=== PATIENT | female | born 1940 | race Caucasian/White ===

== ENCOUNTER 2017-06-11 14:11 | Emergency (ER) | payer MEDICARE ==
[~2017-06-11] VITALS: Ht 154.9 cm; Wt 87.0 kg
[2017-06-11 14:17] VITALS: BP 181/81; PULSE 85; RESP 18; TEMP 98.1; O2SAT 97
[2017-06-11] MEDS ORDERED: CAPT12.52 PO (15:26)
[2017-06-11] MEDS ORDERED: alleve (15:26)
[2017-06-11] MEDS ORDERED: AMLO2.5T PO (15:26)
[2017-06-11] MEDS ORDERED: METF500T PO (15:26)
[2017-06-11] MEDS ORDERED: VITA1000 PO (15:26)
[2017-06-11] MEDS ORDERED: HYDR25TA5 PO (15:26)
[2017-06-11] MEDS ORDERED: SYNT175T PO (15:26)
[2017-06-11] MEDS ORDERED: UMEC1AER INH (15:26)
[2017-06-11] MEDS ORDERED: VENTAER INH (15:26)
[2017-06-11] MEDS ORDERED: ARMO1TAB2 PO (15:26)
[2017-06-11] MEDS ORDERED: TETANUS/DIPHTHERIA TOXOID ADULT 0.5 ML VIAL IM ONE (15:30)
--- NOTE | 2017-06-11 15:32 | PD ---
HPI Chief Complaint: Fall Time Seen by Provider: 15:19 Travel History International Travel<30 days: No Contact w/Intl Traveler<30days: No Traveled to known affect area: No History of Present Illness HPI 77-year-old female presents via EMS for evaluation after mechanical fall. Prior to arrival the patient tripped and fell at [employer], striking her face against the ground and striking her left hand against the ground. No loss of consciousness. She has minimal pain but she has some soft tissue swelling in the left periorbital region and an abrasion to left hand. Symptoms are mild, aggravated by falling with no alleviating factors. Denies blurred vision, neck or back pain, numbness or tingling or weakness, confusion or amnesia. She is not on any blood thinning medications. Her last tetanus vaccination is unknown. No other complaints at this time. [facility] Social History Alcohol Use: Yes Tobacco Use: No Allergies-Medications (Allergen,Severity, Reaction): Coded Allergies: Iodinated Contrast- Oral and IV Dye (Verified Allergy, Severe, Anaphylaxis , 06/11/17) aspirin (Verified Allergy, Severe, Swelling, 06/11/17) cat dander (Verified Allergy, Severe, Swelling, 06/11/17) shellfish derived (Verified Allergy, Severe, Anaphylaxis, 06/11/17) Uncoded Allergies: GOLD METAL (Allergy, Severe, Rash, 06/11/17) Reported Meds & Prescriptions Reported Meds & Active Scripts Active Reported Ventolin Hfa 18 GM Inh (Albuterol Sulfate) 90 Mcg/Act Aer 1 Puff INH Q4H PRN Anoro Ellipta Inh (Umeclidinium/Vilanterol) 62.5-25 Mcg/Act Aero 1 Puff INH DAILY Vitamin D-1000 (Cholecalciferol) 1,000 Unit Tab Unknown Dose PO DAILY [alleve] DAILY Hydrochlorothiazide 25 Mg Tab 12.5 Mg PO DAILY Amlodipine (Amlodipine Besylate) 2.5 Mg Tab Unknown Dose PO DAILY Armodafinil 50 Mg Tab Unknown Dose PO DAILY Synthroid (Levothyroxine Sodium) 175 Mcg Tab 175 Mcg PO DAILY Captopril 12.5 Mg Tab Unknown Dose PO BID Take 1 hour before meals. Metformin (Metformin HCl) 500 Mg Tab 250 Mg PO BIDPC Review of Systems Except as stated in HPI: all other systems reviewed are Neg Physical Exam Narrative GENERAL: Well-developed well-nourished female in no acute distress SKIN: Warm and dry. Abrasion to the medial left hand. There is ecchymosis and soft tissue swelling to the left periorbital region which is tender to palpation. HEAD: Atraumatic. Normocephalic. EYES: Pupils equal and round reactive to light. The patient has limited lateral deviation of the left eye which she reports is chronic and nonacute. Remainder of extraocular muscle movement is intact. There is no chemosis or pain with extraocular range of motion. There is no proptosis. ENT: No nasal bleeding or discharge. Mucous membranes pink and moist. NECK: Trachea midline. No JVD. CARDIOVASCULAR: Regular rate and rhythm. No murmur appreciated. RESPIRATORY: No accessory muscle use. Clear to auscultation. Breath sounds equal bilaterally. GASTROINTESTINAL: Abdomen soft, non-tender, nondistended. Hepatic and splenic margins not palpable. MUSCULOSKELETAL: No obvious deformities. Minimal tenderness to palpation to medial left hand with associated abrasion. Full range of motion. No tenderness to palpation to the neck or back. NEUROLOGICAL: Awake and alert. No obvious cranial nerve deficits. Motor grossly within normal limits. Normal speech. PSYCHIATRIC: Appropriate mood and affect; insight and judgment normal. Data Data Last Documented VS Vital Signs Date Time Temp Pulse Resp B/P (MAP) Pulse Ox O2 Delivery O2 Flow Rate FiO2 06/11/17 14:17 98.1 85 18 181/81 (114) [address] Brain W/O Iv Contrast(Rout) (06/11/17 ) Ct Facial Bones W/O Iv Cont (06/11/17 ) Hand, Complete ([id number]) (06/11/17 ) Tetanus/Diphtheria Tox Adult (Tetanus/Di (06/11/17 15:30) [facility] Medical Decision Making Medical Screen Exam Complete: Yes Emergency Medical Condition: Yes Medical Record Reviewed: Yes Differential Diagnosis Facial hematoma versus orbital fracture versus retrobulbar hematoma versus intracranial hemorrhage versus contusion Narrative Course CT imaging reveals CONCLUSION: 1. Large cephalhematoma over the left frontal bone extending inferiorly into the pre-septal area. 2. No associated fracture. X-ray imaging left hand reveals no acute abnormalities. The patient is stable for discharge. I discussed with the patient and her friend at bedside signs and symptoms weren't returning to the emergency room. She is stable for discharge. Diagnosis Primary Impression: Facial hematoma Additional Impression: Abrasion of left hand Additional Instructions: Ice the affected area several times a day 20 minutes at a time. Rest. Follow- up with primary care physician next week. Return for any acutely or worsening symptoms such as change in mental status, severe intractable headache, intractable nausea and vomiting. Med/Other Pt SpecificInfo: No Change to Meds Disposition: 01 DISCHARGE HOME Condition: Stable Quinn Goncalves Jun 11, 2017 15:32
--- NOTE | 2017-06-11 16:09 | RADRPT ---
EXAM DATE/TIME: 06/11/2017 15:43 [facility] COMPARISON: No previous studies available for comparison. INDICATIONS : Left hand injury due to a fall. Tripped and fell on tile floor 2 hours ago. MEDICAL HISTORY : None. SURGICAL HISTORY : None. ENCOUNTER: Initial ACUITY: 1 day PAIN SCORE: 0/10 LOCATION: Left upper extremity Below left hand 5th phalange. FINDINGS: Three view examination of the left hand demonstrates no soft tissue swelling, dislocation, or fractur e. The carpal bones appear intact. The interphalangeal and metacarpophalangeal joints are intact. Bony mineralization is normal. Also noted is some early calcification of the triangular fibrocartilage of the wrist. Well-corticated ossification at the base of the first metacarpal is overtly benign but may be degenerative. CONCLUSION: No fracture. Marcos Schroeder MD on June 11, 2017 at 16:04 Board Certified Radiologist. This report was verified electronically.
--- NOTE | 2017-06-11 16:13 | RADRPT ---
EXAM DATE/TIME: 06/11/2017 15:56 [facility] COMPARISON: No previous studies available for comparison. INDICATIONS : Head pain due to fall. RADIATION DOSE: 45.79 CTDIvol (mGy) MEDICAL HISTORY : None SURGICAL HISTORY : None. ENCOUNTER: Initial ACUITY: 1 day PAIN SCALE: 3/10 LOCATION: Left cranial TECHNIQUE: Multiple contiguous axial images were obtained of the head. Using automated exposure control and adj ustment of the mA and/or kV according to patient size, radiation dose was kept as low as reasonably a chievable to obtain optimal diagnostic quality images. DICOM format image data is available electro nically for review and comparison. FINDINGS: CEREBRUM: The ventricles are normal for age. No evidence of midline shift, mass lesion, hemorrhage or acute in farction. No extra-axial fluid collections are seen. POSTERIOR FOSSA: The cerebellum and brainstem are intact. The 4th ventricle is midline. The cerebellopontine angle i s unremarkable. EXTRACRANIAL: The visualized portion of the orbits is intact. SKULL: Large cephalhematoma over the left frontal bone. The calvaria is intact. No evidence of skull fract ure. CONCLUSION: 1. Large cephalhematoma over the left frontal bone. No associated fracture. 2. Otherwise negative. Marcos Schroeder MD on June 11, 2017 at 16:08 Board Certified Radiologist. This report was verified electronically.
--- NOTE | 2017-06-11 16:19 | RADRPT ---
EXAM DATE/TIME: 06/11/2017 15:58 [facility] COMPARISON: No previous studies available for comparison. INDICATIONS : Left upper orbit pain from fall. RADIATION DOSE: 36.57 CTDIvol (mGy) MEDICAL HISTORY : None SURGICAL HISTORY : None. ENCOUNTER: Initial ACUITY: 1 day PAIN SCORE: 4/10 LOCATION: Left orbit region. TECHNIQUE: Volumetric scanning of the facial bones was performed. Using automated exposure control and adjustme nt of the mA and/or kV according to patient size, radiation dose was kept as low as reasonably achiev able to obtain optimal diagnostic quality images. DICOM format image data is available electronicall y for review and comparison. FINDINGS: ORBITS: The orbital and infraorbital osseous structures are intact. The retroconal structures have a normal configuration. No radiopaque foreign bodies are seen. NASAL BONE: The nasal bone and maxillary spine are intact ZYGOMATIC ARCHES: Symmetric without evidence of fracture. SINUSES: The maxillary, ethmoid and frontal sinuses are intact. No air-fluid levels seen. NASAL CAVITY: The nasal septum is intact and midline. The lacrimal ducts are intact. SOFT TISSUES: No radiopaque foreign bodies seen. Large cephalhematoma over the left frontal bone extending int o the preseptal soft tissues. INTRACRANIAL: No intracranial air seen. CRIBIFORM PLATE: Grossly intact. CONCLUSION: 1. Large cephalhematoma over the left frontal bone extending inferiorly into the pre-septal area. 2. No associated fracture. Marcos Schroeder MD on June 11, 2017 at 16:14 Board Certified Radiologist. This report was verified electronically.
[2017-06-14] MEDS ORDERED: NAPR220C22 PO (11:08)
== END 2017-06-11 17:05 | disposition home or self-care (01) ==
LOC: NEPD 14:11
DX: S00.83XA Contusion of other part of head, initial encounter (principal); S60.512A Abrasion of left hand, initial encounter; W01.0XXA Fall on same level from slipping, tripping and stumbling without subsequent striking against object, initial encounter; Y92.512 Supermarket, store or market as the place of occurrence of the external cause; Z79.51 Long term (current) use of inhaled steroids; Z79.899 Other long term (current) drug therapy; Z88.6 Allergy status to analgesic agent; Z23 Encounter for immunization
CPT/HCPCS: 70450; 70486; 73130; 90471; 90714